=== PATIENT | female | born 1965 | race Caucasian/White ===

== ENCOUNTER 2022-10-31 09:23 | Day surgery (SDC) | payer BC, SELFPAY ==
--- NOTE | 2022-10-30 14:13 | EKG ---
Test Date: 2022-10-29 Test Time: 14:53:12 Director Of Recruitment: EDWIN MEASUREMENT RESULTS: Intervals: Rate: 51 FL: 160 QRSD: 84 QT: 418 QTc: 385 [place]: P: 45 FL: 160 QRS: 18 T: 107 INTERPRETIVE STATEMENTS: Sinus bradycardia T wave abnormality, consider anterior ischemia Abnormal ECG No previous ECG available for comparison Electronically Signed On 10-30-22 14:10:50 CDT by Rachid Us
[2022-10-31] MEDS ORDERED: Ringers Lactate 1,000 ML IV ONE ×2 (09:46→13:38)
[2022-10-31 09:58] LABS: Albumin 3.3 g/dL (3.4-5.0)
[2022-10-31] MEDS ORDERED: dexAMETHasone 10 MG/ML VIAL ONE (11:06)
[2022-10-31] MEDS ORDERED: propofoL 200 MG/20 ML VIAL IV ONE (11:06)
[2022-10-31] MEDS ORDERED: ROCURONIUM 50 MG/5 ML VIAL IV ONE (11:06)
[2022-10-31] MEDS ORDERED: FENTANYL CITR 250 MCG/5 ML ONE (11:06)
[2022-10-31] MEDS ORDERED: MIDAZOLAM HCL 2 MG/2 ML INJ ONE (11:06)
[2022-10-31] MEDS ORDERED: ONDANSETRON 4 MG/2 ML VIAL ONE (11:06)
[2022-10-31] MEDS: LIDOCAINE HCL/EPINEPHRINE 20 ML MDV ONE ×2 (12:03→12:05)
[2022-10-31] MEDS ORDERED: GLYCOPYRROLATE 0.2 MG/ML SYR ONE (12:18)
--- NOTE | 2022-10-31 14:36 | P.OP ---
Outside Production Inspector: NONE,NONE Preoperative diagnosis: primary hyperparathyroidism, hypercalcemia Postoperative diagnosis: same Primary procedure: right superior parathyroidectomy Anesthesia: general Estimated blood loss: 5ml Specimen: right superior parathyroid Findings: enlarged parathyroid, preop PTH 143, Ca 9.5. Postop PTH 57 Operative Technique: Patient was brought to the operating room and placed under general anesthesia using a Nims vocal fold monitoring endotracheal tube. Shoulder roll was placed and the patient was positioned supine with extension of the neck in preparation for parathyroid surgery. The grounding and stimulating electrodes were placed in the patient's left shoulder and secured with tape. A brief preoperative surgeon performed ultrasound was performed as part of her incision planning. 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 The planned incision site was injected with local anesthetic and the neck was prepped with Betadine and draped in a sterile fashion for parathyroid surgery. A 2-1/2 cm incision was made horizontally through an existing skin crease just right of midline using a 15 blade scalpel. Bovie electrocautery was used to divide through the subcutaneous fat. In this layer near midline, the platysma muscle was difficult to identify. The strap muscle fibers were noted and carefully dissected in the paramedian location and retracted medially. With gentle blunt dissection, the internal jugular vein was identified and gently retracted laterally. The right carotid artery was identified medially and deep to the jugular vein. The lateral border of the right thyroid lobe was identified and carefully dissected and retracted medially. Gentle exploration in the right tracheoesophageal groove region revealed tissue consistent with parathyroid adenoma measuring approximately 1 x 1.5 cm. This tissue was carefully dissected and excised. During dissection and excision, no obvious candidate for the recurrent laryngeal nerve was noted. The nerve stimulator was used intermittently during the exploration to confirm absence of nerve tissue and areas of resection. There was no significant stimulation during this exploration. Following removal, the wound was irrigated. The thyroid and great vessels were allowed to return to their anatomic position. The incision was closed in a layered fashion using 4-0 Vicryl deep sutures and 5-0 fast absorbing gut on the skin. Approximately 20 minutes after removal of the specimen, a PTH level was collected. The patient was kept under general anesthesia until the results confirmed a decrease from 143 down to 57, confirming a greater than 50% decrease and decrease back into the normal range. Although the PTH was on the upper range of normal, the patient's preoperative calcium of 9.9 suggested that the PTH level was likely appropriate as the remaining parathyroid glands were not likely suppressed due to significantly elevated calcium levels. Following receipt of the parathyroid hormone level, the procedure was concluded, the wound was dressed with antibiotic ointment and a gauze dressing. The patient was returned to care of anesthesia for awakening extubation in the operating room which proceeded without difficulty. The patient will be discharged home later today and follow-up with Dr. Last in approximately 10 days as scheduled Complications: None Implants: none Fluids & blood products: see anesthesia record Transferred to: Recovery Room Condition: Good
[2022-10-31] MEDS: MEPERIDINE HCL 25 MG/ML SYR ONE ×2 (14:49→14:55)
[2022-10-31] MEDS ORDERED: ACETAMINOPHEN 500 MG TAB ONE (15:34)
[2022-10-31 16:45] VITALS: TEMP 97; O2SAT 95
[2022-10-31 16:46] VITALS: BP 136/73
== END 2022-10-31 16:20 | disposition home or self-care (01) ==
LOC: OR 09:23
PROVIDERS: ATTEND Otolaryngology
PROC: 0GTL0ZZ Resection of Right Superior Parathyroid Gland, Open Approach (ICD-10-PCS; principal; 2022-10-31 10:45)
DX: E21.0 Primary hyperparathyroidism (principal)
CPT/HCPCS: 36415; 82040; 82310; 83970; 88305; 93005; J1100; J2175; J2250; J2405; J2704; J3010; J7120

== ENCOUNTER 2022-12-12 06:46 | Day surgery (SDC) | payer SELFPAY ==
[2022-12-12] MEDS ORDERED: propofoL 200 MG/20 ML VIAL IV ONE (07:08)
[2022-12-12] MEDS ORDERED: FENTANYL CITR 100 MCG/2 ML ONE (07:08)
[2022-12-12] MEDS ORDERED: dexAMETHasone 10 MG/ML VIAL ONE (07:09)
[2022-12-12] MEDS ORDERED: MIDAZOLAM HCL 2 MG/2 ML INJ ONE (07:09)
[2022-12-12] MEDS ORDERED: ONDANSETRON 4 MG/2 ML VIAL ONE (07:11)
[2022-12-12] MEDS ORDERED: LIDOCAINE 2% MPF 5 ML VIAL ONE (07:11)
[2022-12-12] MEDS ORDERED: Ringers Lactate 1,000 ML IV ONE (07:17)
[2022-12-12] MEDS ORDERED: EPINEPHRINE/PF 1 MG/ML AMP ONE (07:45)
[2022-12-12] MEDS ORDERED: ROCURONIUM 50 MG/5 ML VIAL IV ONE (08:13)
--- NOTE | 2022-12-12 08:44 | P.OP ---
[employer] Sales Consultant: NONE,NONE Primary procedure: Right vocal fold immobility, dysphonia Anesthesia: General Estimated blood loss: None Specimen: None Findings: 0.15 mL ProlarynPlus injected into the right vocal fold Operative Technique: After adequate plane of anesthesia, a shoulder roll was placed and the neck was extended but supported. A rubber tooth guard was placed on the upper dentition. The Robotoki laryngoscope fitted with a 15 degree rigid telescope was used to perform a direct laryngoscopy and placed in suspension. Photodocumentation was obtained. Laterality of injection was confirmed with the operating room staff in conjunction with the preoperative history and physical. The ProLaryn Plus was fitted to a straight transoral injection needle. The tip was inserted at the lateral aspect of the right vocal fold in the mid and anterior third and a total of 0.15 mL was injected which resulted in good medialization of the phonating surface. Minimal bleeding was noted. A small pledget was used to provide gentle pressure and aid in hemostasis. Photodocumentation of the position of the vocal fold was obtained. The laryngoscope was carefully removed. The tooth guard was removed. The patient was returned to anesthesia for awakening extubation in the operating room which proceeded without difficulty. Complications: None Implants: ProlarynPlus 0.15ml injected to the right vocal fold Fluids & blood products: See anesthesia record, crystalloid Transferred to: Recovery Room Condition: Good
[2022-12-12 08:51] VITALS: O2SAT 93
[2022-12-12] MEDS ORDERED: HYDROCOD 2.5mg-ACETAMIN 108mg/5mL Soln ONE (09:29)
[2022-12-12 09:45] VITALS: BP 127/65; TEMP 97
== END 2022-12-12 10:15 | disposition home or self-care (01) ==
LOC: OR 06:46
PROVIDERS: ATTEND Otolaryngology
PROC: 3E0F8GC Introduction of Other Therapeutic Substance into Respiratory Tract, Via Natural or Artificial Opening Endoscopic (ICD-10-PCS; principal; 2022-12-12 07:45)
DX: J38.01 Paralysis of vocal cords and larynx, unilateral (principal); R49.0 Dysphonia
CPT/HCPCS: J0171; J1100; J2001; J2250; J2405; J2704; J3010; J7120